=== PATIENT | male | born 1995 | race Asian ===

== ENCOUNTER 2017-05-05 09:15 | Emergency (ER) | payer OTHER ==
[~2017-05-05] VITALS: Ht 176.5 cm; Wt 86.4 kg
[2017-05-05] MEDS ORDERED: HYDR-3713 PO (09:25)
[2017-05-05] MEDS ORDERED: AMOX125C PO (09:25)
[2017-05-05] MEDS ORDERED: IBUP200C10 PO (09:25)
[2017-05-05] MEDS ORDERED: ONDANSETRON 4MG/2ML VIAL (J2405) IV ONE (10:00)
[2017-05-05 11:11] VITALS: BP 138/80
== END 2017-05-05 11:14 | disposition home or self-care (01) ==
LOC: M ED 09:15
DX: T40.2X5A Adverse effect of other opioids, initial encounter (principal); Y92.89 Other specified places as the place of occurrence of the external cause; Y93.89 Activity, other specified; Y99.9 Unspecified external cause status
CPT/HCPCS: 96374; 99284; J2405